=== PATIENT | male | born 1980 | race Caucasian/White ===

== ENCOUNTER 2022-10-25 21:42 | Emergency (ER) | payer BC ==
[2022-10-25 22:21] VITALS: RESP 20; TEMP 98.6
[2022-10-25] MEDS ORDERED: KETOROLAC 15 MG/ML 1 ML VIAL IM STA (22:31)
[2022-10-25] MEDS ORDERED: HYDROcodone/APAP 5-325MG 1 EACH TAB PO STA (22:31)
[2022-10-25] MEDS ORDERED: MORPHINE SULFATE 4 MG/ML SYRINGE IM STA (23:37)
--- NOTE | 2022-10-25 23:48 | ED ---
Lower Extremity Injury HPI - General Chief Complaint: Extremity Injury, Lower Stated Complaint: Rt foot injury Time Seen by Provider: 10/25/22 22:09 Source: patient, RN notes reviewed Mode of arrival: ambulatory Limitations: no limitations - History of Present Illness Initial Comments: This is a 42-year-old male who presents to the emergency department for right foot and ankle pain. Patient was jumping with his kids, when he came down wrong on the right foot and ankle. He has since had difficulty walking and moving the foot. This happened about one hour prior to arrival. Denies hitting his head or sustaining any other injuries. Denies any fevers, chills, sore throat, cough, dyspnea, chest pain, palpitations, abdominal pain, nausea, vomiting, diarrhea, back pain, or headaches. MD Complaint: ankle injury, foot injury - Related Data Previous Rx's Medication Instructions Recorded HYDROcodone/APAP 7.5-325MG [Salkum 1 tab PO Q6HR PRN 3 Days #12 tab 10/26/22 7.5-325] Ibuprofen [Motrin] 800 mg PO Q8H PRN #30 tab 10/26/22 Allergies Allergy/AdvReac Type Severity Reaction Status Date / Time No Known Allergies Allergy Verified 10/25/22 23:57 Review of Systems ROS Statement: Those systems with pertinent positive or pertinent negative responses have been documented in the HPI. ROS Other: All systems not noted in ROS Statement are negative. Past Medical History Past Medical History: No Reported History History of Any Multi-Drug Resistant Organisms: None Reported Past Surgical History: No Surgical Hx Reported Past Psychological History: Depression Smoking Status: Never smoker Past Alcohol Use History: Occasional Past Drug Use History: None Reported General Exam Limitations: no limitations General appearance: alert, in distress Head exam: Present: atraumatic, normocephalic, normal inspection Respiratory exam: Present: normal lung sounds bilaterally. Absent: respiratory distress, wheezes, rales, rhonchi, stridor Cardiovascular Exam: Present: regular rate, normal rhythm, normal heart sounds. Absent: systolic murmur, diastolic murmur, rubs, gallop, clicks Extremities exam: Present: other (Tenderness to palpation over the right calcaneus and right lateral malleolus. 2+ DP and PT pulses. Capillary refill less than 1 second.) Neurological exam: Present: alert, oriented X3, CN II-XII intact Psychiatric exam: Present: normal affect, normal mood Skin exam: Present: warm, dry, intact, normal color. Absent: rash Course Vital Signs 10/25/22 10/26/22 22:17 00:46 Temperature 98.6 F Pulse Rate 65 67 Respiratory 20 20 Rate Blood Pressure 115/67 121/75 O2 Sat by Pulse 98 98 Oximetry Procedures - Orthopedic Splinting/Casting Injury #1 Side: right Lower Extremity Injury Location: foot Lower Extremity Immobilizer: posterior splint, stirrup splint Other Orthopedic Equipment: crutches Medical Decision Making - Medical Decision Making This is a 42-year-old male who presents to the emergency department for right foot and ankle pain. Was pt. sent in by a medical professional or institution? @ -No Did you speak to anyone other than the patient for history? @ -No Did you review nursing and triage notes? @ -Yes, and I agree, it is accurate with regards to the patient's symptoms. Were old charts reviewed? @ -No Differential Diagnosis? @ -Differential Foot/Ankle Pain: Fracture, dislocation, contusion, sprain, this is not meant to be an all- inclusive list. EKG interpreted by me (3pts min.)? @ -Not obtained X-rays interpreted by me (1pt min.)? @ -X-ray of the right foot and ankle obtained. My interpretation identifies a right calcaneus fracture. CT interpreted by me (1pt min.)? @ -Not obtained U/S interpreted by me (1pt. min.)? @ -Not obtained What testing was considered but not performed? (CT, X-rays, U/S, labs)? Why? @ -None What meds were considered but not given? Why? @ -None Did you discuss the management of the patient with other professionals? @ -No Did you reconcile home meds? @ -No Was smoking cessation discussed for >3mins.? @ -No Was critical care preformed (if so, how long)? @ -No Were there social determinants of health that impacted care today? How? (Homelessness, low income, unemployed, alcoholism, drug addiction, transportation, low edu. Level, literacy, decrease access to med. care, longterm, rehab)? @ -No Was there de-escalation of care discussed even if they declined? (Discuss DNR or withdrawal of care, Hospice)? @ -No What co-morbidities impacted this encounter? (DM, HTN, Smoking, COPD, CAD, Cancer, CVA, Hep., AIDS, mental health diagnosis, sleep apnea, morbid obesity)? @ -None Was patient admitted / discharged? @ -Discharged. X-ray of the right foot and ankle obtained revealing a nondisplaced intra-articular calcaneal fracture. Pain was controlled in the emergency department. Posterior stirrup splint applied and the patient was given crutches. Prescription for Salkum and ibuprofen provided with dosing instructions reviewed. He is advised to alternate with ibuprofen and Tylenol as needed for pain relief and to take the Salkum sparingly when his pain is most severe and to avoid driving or operating machinery when taking this. He is also advised to apply ice for 15-20 minutes every 2-3 hours and keep the leg elevated. Information for orthopedic follow-up provided. Patient will contact them first thing Friday morning for a follow-up appointment. Signs and symptoms of compartment syndrome reviewed as well. Undiagnosed new problem with uncertain prognosis? @ -None Drug Therapy requiring intensive monitoring for toxicity (Heparin, Nitro, Insulin, Cardizem)? @ -None Were any procedures done? @ -Yes, posterior stirrup splint application Diagnosis/symptom? @ -Right calcaneus fracture Acute, or Chronic, or Acute on Chronic? @ -Acute Uncomplicated (without systemic symptoms) or Complicated (systemic symptoms)? @ -Uncomplicated Side effects of treatment? @ -None Exacerbation, Progression, or Severe Exacerbation] @ -Not applicable Poses a threat to life or bodily function? @ -This will impact his ability to ambulate for the mean time. Return precautions reviewed in depth, the patient is instructed to return to the emergency department with any new, worsening, or concerning symptoms. Patient verbalized understanding. This case was discussed in detail with the attending ED physician, Dr. Moon. Presentation, findings, and treatment plan discussed in detail as well. - Radiology Data Radiology results: report reviewed, image reviewed Disposition Clinical Impression: Right calcaneal fracture Disposition: HOME SELF-CARE Condition: Stable Instructions (If sedation given, give patient instructions): Calcaneal Fracture (ED), Splint Care (ED) Additional Instructions: Return to the emergency department with any new, worsening, or concerning symptoms. Alternate with ibuprofen and Tylenol as needed for pain relief. Apply ice for 15-20 minutes every 2-3 hours. Take the Salkum sparingly when your pain is the most severe. Contact orthopedics as listed below for a follow-up appointment first thing Friday. Follow up with your primary care provider in 1-2 days. Prescriptions: Ibuprofen [Motrin] 800 mg PO Q8H PRN #30 tab PRN Reason: Pain HYDROcodone/APAP 7.5-325MG [Salkum 7.5-325] 1 tab PO Q6HR PRN 3 Days #12 tab PRN Reason: Pain Is patient prescribed a controlled substance at d/c from ED?: No Referrals: Jean Diaz MD [Primary Care Provider] - 1-2 days Romeo Rogers MD [STAFF PHYSICIAN] - 1-2 days
[2022-10-26] MEDS ORDERED: HYDROcodone/APAP 10-325MG 1 EACH TAB PO ONE (00:38)
[2022-10-26 00:47] VITALS: BP 121/75; PULSE 67
--- NOTE | 2022-10-26 00:59 | XR ---
ADDENDUM - Added by Zheng Katz MD on 10/26/2022 1:16 AM (-07:00) XAM: XR Right Ankle Complete, 3 or More Views CLINICAL HISTORY: [email or web address] XR Reason: Pain after fall TECHNIQUE: Frontal, lateral and oblique views of the right ankle. COMPARISON: No relevant prior studies available. FINDINGS: Bones/joints: Nondisplaced intra-articular calcaneal fracture Soft tissues: Unremarkable. IMPRESSION: Nondisplaced intra-articular calcaneal fracture EXAM: XR Right Ankle Complete, 3 or More Views CLINICAL HISTORY: [email or web address] XR Reason: Pain after fall TECHNIQUE: Frontal, lateral and oblique views of the right ankle. COMPARISON: No relevant prior studies available. FINDINGS: Bones/joints: Unremarkable. No acute fracture. No dislocation. Soft tissues: Unremarkable. IMPRESSION: Normal right ankle x-rays.
--- NOTE | 2022-10-26 01:17 | XR ---
EXAM: XR Right Foot Complete, 3 or More Views CLINICAL HISTORY: [email or web address] XR Reason: Pain after fall TECHNIQUE: Frontal, lateral and oblique views of the right foot. COMPARISON: No relevant prior studies available. FINDINGS: Bones/joints: Nondisplaced intra-articular calcaneal fracture. No dislocation. Soft tissues: Unremarkable. No radiopaque foreign body. IMPRESSION: Nondisplaced intra-articular calcaneal fracture
== END 2022-10-26 00:47 | disposition home or self-care (01) ==
LOC: EC 21:42
DX: S92.001A Unspecified fracture of right calcaneus, initial encounter for closed fracture (principal); Z86.59 Personal history of other mental and behavioral disorders; X50.0XXA Overexertion from strenuous movement or load, initial encounter
CPT/HCPCS: 99284; 96372 ×2; 29515; 73610; 73630; J1885

== ENCOUNTER → 2022-10-31 | Outpatient (CLI) | payer BC ==
--- NOTE | 2022-10-31 10:29 | CT ---
EXAMINATION TYPE: CT foot RT wo con CT DLP: 330.10 mGycm, Automated exposure control for dose reduction was used. DATE OF EXAM: 10/31/2022 9:14 AM COMPARISON: Extremity radiograph 10/25/2022. CLINICAL INDICATION:Male, 42 years old with history of S92.001A UNSP FRACTURE OF RIGHT CALCANEUS; PHH , FELL CALCANEUS FX TECHNIQUE: Axial images were obtained of the right foot . Additional coronal and sagittal reformatte d images and soft tissue and bone window were obtained for review. 3-D reconstruction was created on a separate workstation. Contrast used: None Oral contrast used: None FINDINGS: Comminuted calcaneus fracture with flattening of the calcaneus. No additional fractures vis ualized. There is intra-articular extension into the posterior subtalar joint and cubocalcaneal joint . Multiple fragments show mild displacement. Os trigonum is noted. There is soft tissue swelling. IMPRESSION: Comminuted calcaneal fracture with flattening of the calcaneus which extension into the posterior sub talar and cubocalcaneal joints
== END | disposition home or self-care (01) ==
LOC: RADCTMAIN 08:26 → MERGE 11-01 08:30
PROVIDERS: ATTEND Orthopaedic Surgery
DX: S92.001A Unspecified fracture of right calcaneus, initial encounter for closed fracture (principal); W19.XXXA Unspecified fall, initial encounter